=== PATIENT | male | born 1990 | race Caucasian/White ===

== ENCOUNTER 2024-06-26 06:46 | Emergency (ER) | payer SELFPAY ==
[2024-06-26] MEDS: Tetracaine HCl/PF 0.5% 4 ML Bottle EYELF ONE (07:05)
[2024-06-26] MEDS: Erythromycin Base 0.5% Ophth Oint 1 GM Tube EYELF ONE (08:05)
== END 2024-06-26 08:30 | disposition home or self-care (01) ==
LOC: MW.ED 06:46
DX: T15.02XA Foreign body in cornea, left eye, initial encounter (principal); Z88.0 Allergy status to penicillin; W20.8XXA Other cause of strike by thrown, projected or falling object, initial encounter
CPT/HCPCS: 65220; 99283; A9270; J3490